=== PATIENT | male | born 1995 | race Caucasian/White ===

== ENCOUNTER 2023-11-16 20:56 | Emergency (ER) | payer OTHER ==
[2023-11-16 21:03] VITALS: BP 132/81; PULSE 65; RESP 18; TEMP 98; BMI 23.7
== END 2023-11-17 01:31 | disposition short-term general hospital (02) ==
LOC: JER 20:56 → JERFT 20:56 → JER 11-17 01:31
DX: Q15.0 Congenital glaucoma (principal); H57.11 Ocular pain, right eye
CPT/HCPCS: 99285-25